=== PATIENT | female | born 1940 | race Caucasian/White ===

== ENCOUNTER → 2021-11-03 10:20 | Outpatient (CLI) | payer OTHER, SELFPAY ==
--- NOTE | ~2021-11-03 | DEXA_ITS ---
Bone Density Report Name: NANY TELLO Age: 80 Sex: Female Ethnicity: White Date of : 1940 Indication: postmenopausal; screening for osteoporosis; height loss; hysterectomy; Referring Provider: Milena TIM Study: Bone densitometry was performed. Exam Date: November 03, 2021 Accession number: [id number] Bone Density: Region BMD T-score Z-score Classification AP Spine (L1-L4) 0.758 -2.6 0.1 Osteoporosis Femoral Neck (Left) 0.507 -3.1 -0.8 Osteoporosis Total Hip (Left) 0.608 -2.7 -0.7 Osteoporosis Femoral Neck (Right) 0.458 -3.5 -1.2 Osteoporosis Total Hip (Right) 0.590 -2.9 -0.8 Osteoporosis Total Hip Mean 0.599 -2.8 -0.8 Osteoporosis World Health Organization criteria for BMD impression classify patients as: Normal (T-score at or above -1.0), Osteopenia (T-score between -1.0 and -2.5), or Osteoporosis (T-score at or below -2.5). 10-year Fracture Risk: FRAX not reported because: Some T-score for Spine Total or Hip Total or Femoral Neck at or below -2.5 Clinical Information Provided by Patient: Has used the following medications: Fosamax (i.e. alendronate), Vitamin D, Calcium Has the following medical conditions: Hysterectomy Patient maximum height was 66 Menopause Age: 36 No regular weight bearing exercise Drinks caffeinated beverages Onset of menses at age 13 Number of children 2 Impression: The patient has osteoporosis, based on the Right Femoral Neck T-score. Discussion: INCREASED RISK OF FRACTURE. BONE DENSITY IS UNDESIRABLY LOW AT ONE OR MORE SKELETAL SITES, CONSISTENT WITH POSTMENOPAUSAL OSTEOPOROSIS. This patient's lowest T-score meets the World Health Organization's (WHO) criteria for osteoporosis at one or more sites (T-score -2.5 or below). In untreated patients, the risk of osteoporotic fracture increases approximately two-fold for each 1.0 SD decrease in T-score. Low bone density is not the only risk factor for fracture; also consider factors such as patient's age, frailty or poor health, risk of falling, risk of injury, previous osteoporotic fracture, family history of osteoporosis, cigarette smoking, low body weight, etc. Not everyone with low bone mineral density has osteoporosis; osteomalacia and other metabolic bone disorders should also be considered. Patients who have osteoporosis should be evaluated for specific diseases and conditions (secondary causes) that may cause or contribute to bone loss. The [place] [employer]ocr[employer] (AACE) and National Osteoporosis Foundation (NOF) recommend pharmacologic intervention for all postmenopausal women whose T-score is in this range. The patient should follow a healthful lifestyle (good nutrition with adequate calcium and vitamin D, and appropriate weight-bearing exercise). Follow-Up: Consider a repeat BMD and Vert
== END ==
DX: M81.0 Age-related osteoporosis without current pathological fracture (principal)
CPT/HCPCS: 77080

== ENCOUNTER 2022-01-05 22:04 | Emergency (ER) | payer OTHER, SELFPAY ==
[2022-01-05] VITALS (8 sets, daily range): BP systolic 191; BP diastolic 107; PULSE 68–91; RESP 15–23; TEMP 36.6; O2SAT 94–98
--- NOTE | ~2022-01-05 | CT_ITS ---
EXAMINATION: CT abdomen pelvis w con DATE: 01/05/2022 23:48 INDICATION: Lower abdominal pain, nausea and vomiting for 2 hours. TECHNIQUE: Computed tomography (CT) of the abdomen and pelvis was performed without intravenous contr ast. Automated exposure control and iterative reconstruction technique were employed. Exam dose: 464 .64 mGy-cm total exam DLP. COMPARISON: None. FINDINGS: There is atelectasis at the lung bases. There is a large hiatal hernia containing nearly the entire stomach, which is markedly distended with fluid and foodstuff above the diaphragm, d with decompression of the very distal stomach, suggesting obstruction, possibly due to volvulus in the region of the diaphragmatic hiatus. Urgent surgical con sultation is recommended to avoid possible gastric strangulation; there is suggestion of possible sma ll gastric wall air collection posterolaterally in the right lower chest. Additionally, the hiatal he rnia is causing mass effect upon the heart. No pericardial or pleural effusion. The liver, gallbladder, bile ducts, spleen, pancreas and pancreatic duct are unremarkable. Normal mor phology of the adrenal glands. Several small renal cysts. No urinary tract calculus or obstruction is noted. Mild left hydronephrosis. The urinary bladder is unremarkable. Status post hysterectomy. Normal caliber of the abdominal aorta. No intraperitoneal or retroperitoneal or pelvic mass lesion or adenopathy or ascites. Normal appendix. Minimal sigmoid colon diverticulosis; no CT evidence of diverticulitis. No bowel obs truction or intraperitoneal free air is detected. Fluid containing small right inguinal hernia. T8 vertebral body hemangioma. Diffuse osteopenia. Degenerative changes of the thoracic and lumbar spi ne. No suspicious osteolytic or osteoblastic lesions are noted. IMPRESSION: Obstructed large hiatal hernia;, likely due to volvulus in the region of the diaphragmat ic hiatus, with possible mild focal gastric wall pneumatosis raising concern for possible strangulati on and vascular compromise. Urgent surgical consultation is recommended. Emergency room physician Dr. Rush was contacted by telephone by Dr. Richards on 01/06/2022 at 0033 hour s with the results of examination and the strong recommendation for urgent surgical consultation. Reviewed, dictated and finalized at [facility]. Reviewed, dictated and finalized at [facility]. IMPRESSION: Obstructed large hiatal hernia;, likely due to volvulus in the reg ion of the diaphragmatic hiatus, with possible mild focal gastric wall pneumato sis raising concern for possible strangulation and vascular compromise. Urgent surgical consultation is recommended. Emergency room physician Dr. Rush was contacted by telephone by Dr. Richards on 01/06/2022 at 0033 hours with the results of examination and the strong recommen dation for urgent surgical consultation.
[2022-01-05 22:32] LABS: Basophils Percent Auto 0.2 % (0.2-1.2); Eosinophils Absolute Auto 0.1 K/mm3 (0-0.3); Eosinophils Percent Auto 0.5 % (0-4.4); Hematocrit 47.3 % (37.0-47.0); Hemoglobin 15.2 g/dL (12.0-15.0); Immature Granulocyte Absolute 0.05 K/mm3 (0.00-0.031); Immature Granulocyte Percent A 0.4 % (0-0.5); Lymphocytes Absolute Auto 1.21 K/mm3 (0.9-3.2); Lymphocytes Percent Auto 9.8 % (18.3-44.2); Mean Corpuscular HGB Conc 32.1 g/dl (32-36); Mean Corpuscular Hemoglobin 30.6 pg (26-34); Mean Corpuscular Volume 95.2 fl (80-100); Mean Platelet Volume 11.1 fl (7.4-10.4); Monocytes Absolute Auto 0.4 K/mm3 (0.1-0.6); Monocytes Percent Auto 3.4 % (2.6-8.5); Neutrophils Absolute Auto 10.5 K/mm3 (1.3-6.7); Neutrophils Percent Auto 85.7 % (45.5-73.1); Platelet Count Result 237 k/mm3 (150-375); Red Blood Count 4.97 M/mm3 (4.2-5.4); Red Cell Distribution Width 12.7 % (11.5-14.5); White Blood Count 12.3 K/mm3 (4.5-10.0)
[2022-01-05 22:50] LABS: Alanine Aminotransferase 18 U/L (4-35); Albumin Level 4.7 g/dL (3.5-5.1); Alkaline Phosphatase 78 U/L (38-126); Anion Gap 9 mmol/L (8-16); Aspartate Amino Transferase 34 U/L (14-36); Bilirubin,Total 0.4 mg/dL (0.2-1.3); Blood Urea Nitrogen 28 mg/dL (7-17); Calcium 9.4 mg/dL (8.4-10.2); Carbon Dioxide 30 mmol/L (22-30); Chloride 102 mmol/L (98-107); Estimated CRCL calculation 42 ml/min; Estimated Glomerular Filt Rate > 60; Glucose 181 mg/dL (65-110); Lipase 203 U/L (23-300); Potassium 3.7 mmol/L (3.4-5.0); Sodium 141 mmol/L (137-145)
--- NOTE | 2022-01-05 23:43 | ED.NAVMDI ---
HPI - Nausea/Vomiting/Diarrhea General Chief complaint: Nausea/Vomiting/Diarrhea Stated complaint: N/V Time Seen by Provider: 01/05/22 23:12 Source: patient History of Present Illness HPI Narrative: Patient presents with nausea vomiting and abdominal pain. Symptoms started this evening around 8:00 and appear to be getting worse. She has attempted some [id number] medications without relief so she came to the ER for further evaluation. Reports she is vomiting up yellow stomach acid and has lower abdominal pain. Pain is achy, constant, radiates to her back, no clear aggravating or alleviating factors. She denies diarrhea or prior abdominal surgeries. Related Data Allergies Allergy/AdvReac Type Severity Reaction Status Date / Time Unable to Assess Allergy Verified 01/05/22 22:24 Review of Systems Review of Systems: CONSTITUTIONAL: Denies fever, chills, or sweats. EYES: Denies visual changes, redness, or discharge. ENT: Denies rhinorrhea, congestion, sore throat, or otalgia. CARDIOVASCULAR: Denies chest pain, palpitations, or edema. RESPIRATORY: Denies cough or dyspnea. GASTROINTESTINAL: Reports abdominal pain nausea and vomiting GENITOURINARY: Denies dysuria or hematuria. SKIN: Denies rash or itching. MUSCULOSKELETAL: Denies joint pain, or myalgia. NEUROLOGIC: Denies headache, numbness, dizziness, or weakness. PSYCHIATRIC: Denies anxiety or depression. All systems reviewed & are unremarkable except as noted in HPI and below PMFSH Past Medical History Medical History (Updated 01/06/22 @ 01:52 by Jj Rush MD) Hypertension Social History Social History (Updated 01/05/22 @ 23:46 by Jj Rush MD) Substance use: never Exam Narrative: GENERAL: Well-appearing, well-nourished, and in no acute distress. HEAD: Normocephalic, atraumatic. EYES: PERRLA and EOMI. ENT: Nares clear, no rhinorrhea or epistaxis. Mucous membranes moist. NECK: Supple. No masses. No JVD CHEST: Clear to auscultation. No respiratory distress. No wheezes rales or rhonchi HEART: No murmur heard. Normal peripheral pulses. ABDOMEN: Mild tenderness in the right lower quadrant no rebound or guarding soft, nondistended. EXTREMITIES: Normal range of motion. No edema. SKIN: Warm, dry, no rash. NEURO: No focal deficits. Alert and oriented x3. PSYCH: Normal mood and affect. Course Reevaluation(s) Reevaluation #1: Patient ports continued sensation of needing to belch with epigastric pain. Case discussed with Dr. Lama surgery head of commission department who recommended transfer to another facility. Call placed as a some transfer center. NG and antibiotics ordered Date: 01/06/22 Time: 01:09 Reevaluation #2: This is in transition without thoracic surgery head of commission department recommended contacting other facilities. Contacted the [facility] spoke with surgery head of commission department recommended transfer to the ER for further evaluation discussed with Dr. Smith the ER who accepted patient for transfer. Family is comfortable with the transfer plan. Date: 01/06/22 Time: 01:51 Vital Signs Vital signs: Vital Signs Pulse Rate 85 01/05/22 22:18 Respiratory Rate 16 01/05/22 22:18 Blood Pressure 191/107 H 01/05/22 22:18 Pulse Oximetry 98 01/05/22 22:18 Temperature 36.6 C 01/06/22 04:45 Pulse Rate 100 01/06/22 04:45 Respiratory Rate 23 H 01/06/22 04:45 Blood Pressure 123/91 H 01/06/22 04:45 Pulse Oximetry 95 01/06/22 04:45 MDM - Nausea/Vomiting/Diarrhea MDM Narrative Medical decision making narrative: Patient presented with abdominal pain nausea and vomiting initial exam was concerning for right lower quadrant abdominal pain. Labs imaging obtained. Patient noted to have a white count of 12 imaging concerning for a gastric volvulus of the hiatal hernia. On repeat exam patient had more complaints of epigastric pain. He did have sensation of needing to belch but to do so. Added on a lactate which is notable for 2.2 due to imaging findings of pn
[2022-01-05] MEDS: SODIUM CHLORIDE 0.9% IV 500 ML 999 ML IV CONT (23:53)
[2022-01-05] MEDS: ONDANSETRON INJ 4 MG/2 ML VIAL IV PUSH (23:53)
[2022-01-06] VITALS (18 sets, daily range): BP systolic 123–178; BP diastolic 80–100; PULSE 91–110; RESP 12–26; TEMP 36.6; O2SAT 89–99
--- NOTE | 2022-01-06 00:38 | ECG_ITS ---
Measurements Intervals [place] Rate: 91 P: 62 MO: 199 QRS: 96 QRSD: 97 T: 44 QT: 387 QTc: 476 Interpretive Statements SINUS RHYTHM POSSIBLE LEFT ATRIAL ENLARGEMENT [-0.1mV P WAVE IN V1/V2] RIGHT AXIS DEVIATION [QRS AXIS > 90] INCOMPLETE RIGHT BUNDLE BRANCH BLOCK [90+ ms QRS DURATION, TERMINAL R IN V1/V2, 40+ ms S IN I/aVL/V4/V5/V6] NO PREVIOUS ECG AVAILABLE FOR COMPARISON Electronically Signed On 01-06-2022 13:01:23 CDT by Maday Brady M.D.
[2022-01-06 01:05] LABS: Lactic Acid Reflex 2.2 mmol/L (0.7-2.1)
[2022-01-06 01:06] LABS: INR 1.1; Prothrombin Time 13.9 Seconds (11.1-14.7)
[2022-01-06 01:07] LABS: Partial Thromboplastin Time 26.9 SECONDS (22.3-36.8)
[2022-01-06] MEDS: MORPHINE SULFATE (*CRX) 4 MG/ML INJ IV PUSH (01:55)
[2022-01-06 02:37] LABS: Add Urine Microscopic? YES; Appearance Urine Clear (Clear); Bilirubin Urine Negative (Negative); Blood Urine Negative (Negative); Color Urine Straw (Yellow); Glucose Urine UA 1+ mg/dL (Negative); Ketones Urine Trace mg/dL (Negative); Leukocyte Esterase Ur Negative LEU/UL (Negative); Nitrate Urine Negative (Negative); Protein Urine Negative (Negative); Urobilinogen Urine Negative mg/dL (<2.0); WBC Urine 0-3 /hpf
[2022-01-06 02:41] LABS: Specific Grav Ur 1.031 (1.001-1.035)
--- NOTE | 2022-01-06 02:50 | PC.NURSE ---
Report given to ARTURO Luevano.
--- NOTE | 2022-01-06 03:28 | PC.NURSE ---
Called [facility] for ETA update. ETA 0430 Called [facility] to request transport. [facility] declined. Called [facility] to request transport. [facility] declined. Called [facility] to request transport. [facility] declined.
[2022-01-06 03:53] LABS: Reflex Lactic Acid Yes or No Add Lactic
[2022-01-06 04:28] LABS: Lactic Acid 2.6 mmol/L (0.7-2.1)
--- NOTE | 2022-01-06 04:38 | PC.NURSE ---
called [facility] for ETA update. ETA [id number]
--- NOTE | 2022-01-06 05:13 | PC.NURSE ---
Report given to [employer].
== END 2022-01-06 05:18 | disposition short-term general hospital (02) ==
PROVIDERS: Emergency Provider Emergency Medicine
DX: K31.89 Other diseases of stomach and duodenum (principal); K44.0 Diaphragmatic hernia with obstruction, without gangrene; I10 Essential (primary) hypertension; R94.31 Abnormal electrocardiogram [ECG] [EKG]; I45.10 Unspecified right bundle-branch block
CPT/HCPCS: 36415; 51701; 74177; 80053; 81001; 83605; 83690; 85025; 85610; 85730; 93005; 96361; 96365; 96375; 99285; J2270; J2405; J2543; J7040; Q9967

== ENCOUNTER 2023-08-25 10:38 | Emergency (ER) | payer OTHER, SELFPAY ==
--- NOTE | ~2023-08-25 | CT_ITS ---
EXAMINATION: CT brain wo con DATE: 08/25/2023 11:16 INDICATION: Fall. TECHNIQUE: Computed tomography (CT) of the head was performed without intravenous contrast. The mA wa s adjusted according to patient size. Iterative reconstruction technique was employed. The dose-lengt h product was 605.33 mGy-cm. COMPARISON: None FINDINGS: There are scattered areas of low attenuation in the cerebral white matter. There is no intr acranial hemorrhage, acute infarction, or abnormal intracranial mass lesion. The ventricles are lizeth l in size. There are likely changes of ocular lens replacement surgeries. There is mild mucosal thick ening in right maxillary sinus. The mastoid air cells are normal. There is right posterolateral scalp soft tissue swelling. IMPRESSION: 1. Moderate nonspecific cerebral white matter disease, which likely represents chronic small vessel i schemic disease. Reviewed, dictated and finalized at [facility]. IMPRESSION: 1. Moderate nonspecific cerebral white matter disease, which likely represents chronic small vessel ischemic disease.
[2023-08-25 10:51] VITALS: BP 145/73; PULSE 73; RESP 18; TEMP 36.4; O2SAT 99
--- NOTE | 2023-08-25 11:03 | ECG_ITS ---
Measurements Intervals [place] Rate: 63 P: 57 [place]: 152 QRS: 52 QRSD: 97 T: 31 QT: 422 QTc: 434 Interpretive Statements SINUS RHYTHM WITH SINUS ARRHYTHMIA BASELINE ARTIFACT- I, III, AVR, AVL NORMAL ECG NO PREVIOUS ECG AVAILABLE FOR COMPARISON Electronically Signed On 08-25-2023 14:20:34 CDT by Randy Jordan D.O.
[2023-08-25 11:45] LABS: Basophils Percent Auto 0.1 % (0.2-1.2); Eosinophils Absolute Auto 0.1 K/mm3 (0-0.3); Eosinophils Percent Auto 1.4 % (0-4.4); Hemoglobin 12.5 g/dL (12.0-15.0); Immature Granulocyte Absolute 0.02 K/mm3 (0.00-0.031); Immature Granulocyte Percent A 0.3 % (0-0.5); Lymphocytes Absolute Auto 1.09 K/mm3 (0.9-3.2); Lymphocytes Percent Auto 14.9 % (18.3-44.2); Mean Corpuscular HGB Conc 32.1 g/dl (32-36); Mean Corpuscular Hemoglobin 30.6 pg (26-34); Mean Corpuscular Volume 95.6 fl (80-100); Mean Platelet Volume 11.3 fl (7.4-10.4); Monocytes Absolute Auto 0.5 K/mm3 (0.1-0.6); Monocytes Percent Auto 7.2 % (2.6-8.5); Neutrophils Absolute Auto 5.6 K/mm3 (1.3-6.7); Neutrophils Percent Auto 76.1 % (45.5-73.1); Platelet Count Result 228 k/mm3 (150-375); Red Blood Count 4.08 M/mm3 (4.2-5.4); Red Cell Distribution Width 13.2 % (11.5-14.5); White Blood Count 7.3 K/mm3 (4.5-10.0)
[2023-08-25 11:59] LABS: Anion Gap 5 mmol/L (8-16); Blood Urea Nitrogen 29 mg/dL (7-17); Calcium 8.9 mg/dL (8.4-10.2); Carbon Dioxide 30 mmol/L (22-30); Chloride 101 mmol/L (98-107); Estimated CRCL calculation 37 ml/min; Estimated Glomerular Filt Rate 60; Glucose 100 mg/dL (65-110); Potassium 3.9 mmol/L (3.4-5.0); Sodium 136 mmol/L (137-145)
[2023-08-25 12:07] LABS: Troponin I < 0.012 ng/mL (0.000-0.034)
--- NOTE | 2023-08-25 12:28 | ED.HEATRA ---
HPI - Head Injury General Chief complaint: Head Injury Stated complaint: head injury Time Seen by Provider: 08/25/23 10:48 Source: patient and family Mode of arrival: wheelchair Limitations: dementia History of Present Illness HPI Narrative: 82-year-old with a history of dementia was brought in by her daughter with complaints of fall earlier this morning. Patient does not recall how she fell as per the daughter care home staff notified her that she fell earlier. Patient upon arrival to the ER denies having any headache, chest pain, shortness of breath or abdominal pain. Related Data Allergies Allergy/AdvReac Type Severity Reaction Status Date / Time No Known Allergies Allergy Verified 08/25/23 11:00 Review of Systems Review of Systems: All systems reviewed & are unremarkable except as noted in HPI and below Constitutional: Constitutional: Reports no additional constitutional complaints Eyes: Eyes: Reports no additional eye complaints Gastrointestinal: Gastrointestinal: Reports no additional gastrointestinal complaints Musculoskeletal: Musculoskeletal: Reports no additional musculoskeletal complaints Integumentary/Breasts: Skin/Breast: Reports system reviewed and no additional complaints, except as docu Neurologic: Reports system reviewed and no additional complaints, except as documented Psychiatric: Psychiatric: Reports no additional psychiatric complaints [facility] Past Medical History Medical History (Updated 08/25/23 @ 12:29 by Kiel Burgos MD) Hypertension Social History Social History (System 01/22/22 @ 14:53 by Tiera Saleem) Substance use: never Exam Narrative: GENERAL: Well-appearing, well-nourished, and in no acute distress. HEAD: Normocephalic, atraumatic. Small hematoma noted on the right side of the occipital area EYES: PERRLA and EOMI. ENT: Nares clear, no rhinorrhea or epistaxis. Mucous membranes moist. NECK: Supple. CHEST: Clear to auscultation. No respiratory distress. HEART: Regular rate and rhythm. No murmur heard. Normal peripheral pulses. ABDOMEN: Soft, nontender, nondistended, normal active bowel sounds. EXTREMITIES: Normal range of motion. No edema. SKIN: Warm, dry, no rash. NEURO: No focal deficits. Alert . PSYCH: Normal mood and affect. Course Course Emergency Course: Patient comfortably resting on the bed in no discomfort informed her daughter about the lab work, CT findings. Recommended her to continue home medications, fall precautions notified. Vital Signs Vital signs: Vital Signs Temperature 36.4 C 08/25/23 10:51 Pulse Rate 73 08/25/23 10:51 Respiratory Rate 18 08/25/23 10:51 Blood Pressure 145/73 H 08/25/23 10:51 Pulse Oximetry 99 08/25/23 10:51 Oxygen Delivery Room Air 08/25/23 10:51 Temperature 36.4 C 08/25/23 10:51 Pulse Rate 73 08/25/23 10:51 Respiratory Rate 18 08/25/23 10:51 Blood Pressure 145/73 H 08/25/23 10:51 Pulse Oximetry 99 08/25/23 10:51 Oxygen Delivery Room Air 08/25/23 10:51 MDM - Head Injury MDM Narrative Medical decision making narrative: 82-year-old with a history of dementia brought in with complaints of fall etiology whether his syncope or mechanical fall is unknown as the patient has underlying dementia we will do a CT of the head, lab work, EKG. Differential Diagnosis Differential diagnosis: Likely concussion without loss of consciousness, closed head injury and concussion with loss of consciousness Lab Data Attestation: I reviewed the patient's lab results. 08/25/23 11:36 08/25/23 11:36 Labs: Lab Results 08/25/23 Range/Units 11:36 WBC 7.3 (4.5-10.0) K/mm3 RBC 4.08 L (4.2-5.4) M/mm3 Hgb 12.5 (12.0-15.0) g/dL Hct 39.0 (37.0-47.0) % MCV 95.6 (80-100) fl MCH 30.6 (26-34) pg MCHC 32.1 (32-36) g/dl RDW 13.2 (11.5-14.5) % Plt Count 228 (150-375) k/mm3 MPV 11.3 H (7.4-10.4) fl Immature Gran % (Auto) 0.3 (0
[2023-08-25 12:50] VITALS: BP 147/78; PULSE 75; RESP 18; O2SAT 99
--- NOTE | 2023-08-25 12:50 | PC.NURSE ---
Attempted to call report to [facility]. No answer.
== END 2023-08-25 12:50 | disposition home or self-care (01) ==
PROVIDERS: Emergency Provider Family Medicine
DX: S00.03XA Contusion of scalp, initial encounter (principal); I10 Essential (primary) hypertension; R90.82 White matter disease, unspecified; W19.XXXA Unspecified fall, initial encounter
CPT/HCPCS: 36415; 70450; 80048; 84484; 85025; 93005; 99284